=== PATIENT | female | born 1975 | race Caucasian/White ===

== ENCOUNTER → 2024-06-20 | Outpatient (BNVA) | payer MEDICAID, SELFPAY | END | disposition home or self-care (01) | PROVIDERS: PCP Internal Medicine; Referring Provider Internal Medicine; Visit Provider Urology | DX: I12.0 Hypertensive chronic kidney disease with stage 5 chronic kidney disease or end stage renal disease (principal); N18.6 End stage renal disease; Z99.2 Dependence on renal dialysis; R33.9 Retention of urine, unspecified; I25.10 Atherosclerotic heart disease of native coronary artery without angina pectoris; E66.01 Morbid (severe) obesity due to excess calories; E78.00 Pure hypercholesterolemia, unspecified; K21.9 Gastro-esophageal reflux disease without esophagitis; I25.2 Old myocardial infarction | CPT/HCPCS: 99212; G0463 ==

== ENCOUNTER → 2024-08-29 | Outpatient (CLI) | payer MEDICAID, SELFPAY ==
--- NOTE | 2024-08-29 10:16 | XR_ITS ---
Examination: Screening digital mammography, bilateral Computer aided detection 3-D breast Tomosynthesis, bilateral Date and time of exam: August 29, 2024 10:21 AM Indication: Screening, patient states right arm swelling over one year Technique: Nonmagnified MLO, CC views of the breasts to been obtained, reconstructed from 3-D Tomosynthesis images. R2 computer aided detection program utilized for evaluation of suspicious masses and/or abnormal calcifications. 3-D Tomosynthesis images obtained. Findings: The breasts are heterogeneously dense, which may obscure small masses Marked abnormal diffuse increased radiodensity in the central and anterior right breast with associated prominent skin thickening Impression: BI-RADS Category 0: Incomplete: Need additional imaging evaluation Recommend follow-up spot tomographic views of the anterior upper central portion right breast as well as bilateral breast sonography to complete the workup
== END | disposition home or self-care (01) ==
LOC: CDIM 10:14
PROVIDERS: Referring Provider Internal Medicine; Visit Provider Internal Medicine
DX: Z12.31 Encounter for screening mammogram for malignant neoplasm of breast (principal); R92.8 Other abnormal and inconclusive findings on diagnostic imaging of breast
CPT/HCPCS: 77063; 77067

== ENCOUNTER → 2024-10-07 | Outpatient (CLI) | payer MEDICAID, SELFPAY ==
--- NOTE | 2024-10-07 13:15 | XR_ITS ---
Examination: Breast ultrasound complete, bilateral Date and time of exam: October 07, 2024 1309 hours INDICATIONS: Mammogram August 29, 2024 right breast pain redness swelling and hardness beginning one year ago Technique: Real-time grayscale ultrasonographic imaging bilateral breasts, including all 4 quadrants as well as nipple retroareolar and axillary regions. Findings: Sonographic images right breast Severe heterogeneous edema throughout the breasts Sonographic images left breast Glandular tissue in the retroareolar region IMPRESSION: BI-RADS Category 3: Probably benign findings Severe diffuse edema in the right breast, clinical correlation advised and follow-up recommended
--- NOTE | 2024-10-07 14:15 | XR_ITS ---
Examination: Diagnostic digital mammography, unilateral, right Computer aided detection 3-D breast Tomosynthesis, unilateral Date and time of exam: October 07, 2024 1325 hours INDICATIONS: Mammogram August 29, 2024 marked abnormal diffuse increased radiodensity in the central and anterior right breast Technique: Nonmagnified MLO, CC views of the right breast have been obtained, reconstructed from 3-D Tomosynthesis images. R2 computer aided detection program utilized for evaluation of suspicious masses and/or abnormal calcifications. 3-D Tomosynthesis images obtained. Findings: The breast is heterogeneously dense, which may obscure small masses Severe edema and skin thickening right breast Impression: BI-RADS category 3: Probably benign findings Recommend 6 month right mammography and right breast sonography follow-up
== END | disposition home or self-care (01) ==
PROVIDERS: PCP Internal Medicine; Referring Provider Internal Medicine; Visit Provider Internal Medicine
DX: R92.331 Mammographic heterogeneous density, right breast (principal); R60.0 Localized edema
CPT/HCPCS: 76641; 77061; 77065; G0279

== ENCOUNTER 2025-03-26 19:47 | Emergency (ER) | payer MEDICAID, SELFPAY ==
[2025-03-26 19:47] VITALS: BMI 40.7
[2025-03-26 20:49] VITALS: BP 139/74; PULSE 73; RESP 20; TEMP 36.9; O2SAT 98
--- NOTE | 2025-03-26 20:56 | XR_ITS ---
Examination: Knee, left , 3 views Technique: Knee AP, lateral, oblique 3 views Date and time of exam: March 26, 2025, 2126 hours INDICATIONS: Patient fell today with injury of the knee, knee pain. FINDINGS: No fracture or dislocation. Moderate knee effusion Impression: No fracture or dislocation
--- NOTE | 2025-03-26 20:56 | XR_ITS ---
Examination: Right elbow 3 views Technique: Elbow AP, oblique, lateral 3 views Exam date and time: At 2127 hours INDICATIONS: Patient fell today with image available, elbow pain. FINDINGS: Acute fractures radial neck and head No significant displacement Large elbow effusion IMPRESSION: Acute fractures radial head and neck.
--- NOTE | 2025-03-26 20:56 | XR_ITS ---
Examination: Bilateral wrists 6 views TECHNIQUE: Bilateral uterus total 6 views Date and time: March 26, 2025 2131 hours INDICATIONS: Patient fell today with injury to both wrists, bilateral wrist pain FINDINGS: Moderate osteopenia Mild deformity midportion both navicular as although no definite acute fracture No dislocation IMPRESSION: Recommend follow-up bilateral coned navicular views
[2025-03-26] MEDS: HYDROcodone/APAP 5/325 TABLET 1 TAB PO (22:09)
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
== END 2025-03-26 22:51 | disposition home or self-care (01) ==
PROVIDERS: Emergency Provider Emergency Medicine
DX: S52.121A Displaced fracture of head of right radius, initial encounter for closed fracture (principal); M25.562 Pain in left knee; M25.532 Pain in left wrist; M25.531 Pain in right wrist; N18.6 End stage renal disease; E78.00 Pure hypercholesterolemia, unspecified; I12.0 Hypertensive chronic kidney disease with stage 5 chronic kidney disease or end stage renal disease; I25.2 Old myocardial infarction; Z99.2 Dependence on renal dialysis; Z79.82 Long term (current) use of aspirin; Z79.899 Other long term (current) drug therapy; Z88.0 Allergy status to penicillin; Z88.5 Allergy status to narcotic agent; W01.0XXA Fall on same level from slipping, tripping and stumbling without subsequent striking against object, initial encounter
CPT/HCPCS: 73080; 73110; 73562; 99283; A9270

== ENCOUNTER → 2025-03-27 | Outpatient (CLI) | payer MEDICAID, SELFPAY ==
--- NOTE | 2025-03-27 | XR_ITS ---
Examination: Bilateral wrists 6 views TECHNIQUE: AP oblique lateral each wrist total 6 views Date and time: March 27, 2025 1303 hours INDICATIONS: Patient fell today with injury to both wrists, bilateral wrist pain. FINDINGS: Severe osteopenia No acute fracture involving either wrist Soft tissue vascular calcification No dislocations IMPRESSION: No acute fractures Given the severe osteopenia, recommend 2-3 day follow-up wrist films as clinically warranted
== END | disposition home or self-care (01) ==
LOC: CDIM 11:40
PROVIDERS: PCP Internal Medicine
DX: S69.91XA Unspecified injury of right wrist, hand and finger(s), initial encounter (principal); S69.92XA Unspecified injury of left wrist, hand and finger(s), initial encounter; W19.XXXA Unspecified fall, initial encounter; M85.88 Other specified disorders of bone density and structure, other site
CPT/HCPCS: 73110

== ENCOUNTER → 2025-05-13 | Outpatient (CLI) | payer MEDICAID, SELFPAY ==
--- NOTE | 2025-05-13 09:37 | XR_ITS ---
EXAMINATION: Right wrist 3 views TECHNIQUE: AP oblique lateral right wrist 3 views Date and time: May 13, 2025, 0947 hours INDICATIONS: Patient fell last month with injury of the wrist, wrist pain. FINDINGS: No acute fracture. No dislocation No foreign body IMPRESSION: No acute fracture
--- NOTE | 2025-05-13 09:37 | XR_ITS ---
Examination: Right elbow 3 views Technique: Elbow AP, oblique, lateral 3 views Exam date and time: May,, 0944 hours INDICATIONS: Patient fell last month with injury to the elbow, elbow pain FINDINGS: Acute/subacute fracture radial head, 2 mm depression of a 10 mm radial fracture fragment Large elbow effusion IMPRESSION: Acute mildly displaced fracture radial head.
== END | disposition home or self-care (01) ==
PROVIDERS: PCP Obstetrics & Gynecology; Referring Provider Surgery Surgery of the Hand; Visit Provider Internal Medicine
DX: S52.91XA Unspecified fracture of right forearm, initial encounter for closed fracture (principal); S69.91XA Unspecified injury of right wrist, hand and finger(s), initial encounter; W19.XXXA Unspecified fall, initial encounter
CPT/HCPCS: 73080; 73110

== ENCOUNTER → 2025-06-01 | Outpatient (CLI) | payer MEDICAID, SELFPAY ==
--- NOTE | 2025-06-01 10:28 | XR_ITS ---
Examination: Hand, right 3 views Technique: Hand AP, oblique, lateral 3 views Date and time of exam: June 01, 2025, 1048 hours INDICATIONS: Patient fell 3 months ago with injury to the right hand, right hand pain FINDINGS: Suspicious for periosteal new bone along the fifth metacarpal neck on the oblique view No dislocation No foreign body IMPRESSION: Suspicious for periosteal new bone along the fifth metacarpal neck
--- NOTE | 2025-06-01 10:28 | XR_ITS ---
Examination: Right elbow 3 views Technique: Elbow AP, oblique, lateral 3 views Exam date and time: June 01, 2025, 1048 hours INDICATION: Patient fell 3 months ago with injury of the elbow, elbow pain. FINDINGS: Stable alignment fractures radial head with partial healing Humerus ulna appear intact IMPRESSION: Stable alignment fractures radial head.
--- NOTE | 2025-06-01 10:28 | XR_ITS ---
Examination: Wrist, left 3 views Technique: Wrist AP, oblique, lateral 3 views Date and time of exam: May 25 [id number], 1 1048 hours, comparison May 13, 2025 INDICATIONS: Patient fell 3 months ago with wrist pain. FINDINGS: Prominent osteopenia No acute wrist fracture Soft tissue vascular calcification IMPRESSION: No acute wrist fracture
== END | disposition home or self-care (01) ==
LOC: CDIM 09:58
PROVIDERS: PCP Internal Medicine
DX: S69.91XA Unspecified injury of right wrist, hand and finger(s), initial encounter (principal); S52.91XA Unspecified fracture of right forearm, initial encounter for closed fracture; W19.XXXA Unspecified fall, initial encounter
CPT/HCPCS: 73080; 73110; 73130